=== PATIENT | female | born 1980 | race Caucasian/White ===

== ENCOUNTER → 2016-09-27 | Outpatient (REF) | payer OTHER ==
[~2016-09-27] MED LIST: ACET50TA PO; IBUP-1114 PO; RANI15TA PO; SERT50TA PO
== END ==
LOC: M SFHCLERA 10:53
PROVIDERS: ATTEND Physician Assistant
DX: N89.8 Other specified noninflammatory disorders of vagina (principal)

== ENCOUNTER → 2016-10-22 | Outpatient (REF) | payer OTHER ==
[~2016-10-22] MED LIST changes: +IBUP800T23 PO; +MEDR4PAK PO
== END ==
LOC: M SFHCLERA 14:36
PROVIDERS: ATTEND Nurse Practitioner Family
DX: N89.8 Other specified noninflammatory disorders of vagina (principal)

== ENCOUNTER 2016-10-31 14:45 | Emergency (ER) | payer OTHER ==
[~2016-10-31] VITALS: Ht 170.2 cm; Wt 76.2 kg
[~2016-10-31 14:45] MED LIST changes: -IBUP800T23 PO; -MEDR4PAK PO
[2016-10-31] MEDS ORDERED: KETOROLAC 60 MG/2 ML VIAL (J1885) IM ONE (16:00)
[2016-10-31] MEDS ORDERED: predniSONE 20 MG TAB PO ONE (16:00)
[2016-10-31] MEDS ORDERED: MEDR4PAK PO (16:02)
[2016-10-31] MEDS ORDERED: IBUP800T23 PO (16:02)
[2016-10-31 16:05] VITALS: BP 123/79
== END 2016-10-31 16:27 | disposition home or self-care (01) ==
LOC: M ED 15:31
DX: S39.012A Strain of muscle, fascia and tendon of lower back, initial encounter (principal); M54.32 Sciatica, left side; X58.XXXA Exposure to other specified factors, initial encounter; Y92.099 Unspecified place in other non-institutional residence as the place of occurrence of the external cause; Y93.89 Activity, other specified; Y99.9 Unspecified external cause status; F32.9 Major depressive disorder, single episode, unspecified; F17.200 Nicotine dependence, unspecified, uncomplicated

== ENCOUNTER → 2016-11-03 | Outpatient (CLI) | payer OTHER ==
[~2016-11-03] MED LIST changes: +IBUP800T23 PO; +MEDR4PAK PO
[2016-11-03 16:31] LABS: ALBUMIN 3.7 GM/DL (3.2-5.2); ALBUMIN/GLOBULIN RATIO 1.12 (1.00-1.93); ALKALINE PHOSPHATASE 98 U/L (45-117); ALT/SGPT 24 U/L (12-78); AST/SGOT 19 U/L (15-37); BILIRUBIN,DIRECT < 0.1 MG/DL (0.0-0.2); BILIRUBIN,TOTAL 0.2 MG/DL (0.2-1.0)
== END ==
LOC: M LAB 15:12
PROVIDERS: ATTEND Family Medicine
DX: F11.20 Opioid dependence, uncomplicated (principal)

== ENCOUNTER 2017-02-16 08:34 | Outpatient (RCR) | payer OTHER ==
[~2017-02-16 08:34] MED LIST changes: +IBUP1TAB7 PO; -IBUP800T23 PO
== END 2017-02-19 ==
LOC: M PT 08:34
PROVIDERS: ATTEND Orthopaedic Surgery
DX: Z51.89 Encounter for other specified aftercare (principal); M25.551 Pain in right hip

== ENCOUNTER 2017-04-28 08:52 | Emergency (ER) | payer OTHER ==
[~2017-04-28] VITALS: Ht 170.2 cm; Wt 81.8 kg
[2017-04-28 08:54] VITALS: BP 135/77
[2017-04-28] MEDS ORDERED: DULO1CAP3 (09:09)
[2017-04-28] MEDS ORDERED: BUPR150T3 (09:09)
[2017-04-28] MEDS ORDERED: SUBO8MIS (09:09)
[2017-04-28] MEDS ORDERED: ZANA4TAB PO (09:24)
[2017-04-28] MEDS ORDERED: PRED20TA PO (09:24)
[2017-04-28] MEDS ORDERED: MOBI4TAB PO (09:38)
== END 2017-04-28 09:43 | disposition home or self-care (01) ==
LOC: M ED 08:52
DX: M25.551 Pain in right hip (principal); M25.552 Pain in left hip; M76.891 Other specified enthesopathies of right lower limb, excluding foot; M76.892 Other specified enthesopathies of left lower limb, excluding foot; F41.9 Anxiety disorder, unspecified; F32.9 Major depressive disorder, single episode, unspecified; Z79.899 Other long term (current) drug therapy

== ENCOUNTER 2017-07-24 10:44 | Emergency (ER) | payer OTHER ==
[2017-07-24] MEDS: KETOROLAC 60 MG/2 ML VIAL (J1885) IM (13:38)
== END 2017-07-24 14:08 | disposition home or self-care (01) ==
LOC: M ED 10:44
DX: M54.16 Radiculopathy, lumbar region (principal); M51.37 Other intervertebral disc degeneration, lumbosacral region; F32.9 Major depressive disorder, single episode, unspecified; F41.9 Anxiety disorder, unspecified; F19.10 Other psychoactive substance abuse, uncomplicated; F17.200 Nicotine dependence, unspecified, uncomplicated; Z79.899 Other long term (current) drug therapy
CPT/HCPCS: J1885

== ENCOUNTER → 2017-08-23 | Outpatient (CLI) | payer OTHER | LOC: M RAD 08:25 | DX: N64.4 Mastodynia (principal) | CPT/HCPCS: 77066 ==

== ENCOUNTER → 2018-05-28 | Outpatient (REF) | payer OTHER ==
[~2018-05-28] MED LIST changes: -ACET50TA PO; +BACL1TAB8 GT; +BUPR150T3; +DULO1CAP3; +DULO30CA PO; +GABA-845 PO; +MAPA500T2 PO; +MOBI4TAB PO; +PRED20TA PO; +SUBO12MI SL; +SUBO8MIS; +ZANA4TAB PO
[2018-05-28 20:37] LABS: CHLAMYDIA DNA AMPLIFICATION NEGATIVE (NEGATIVE); GC DNA AMPLIFICATION NEGATIVE (NEGATIVE)
== END ==
LOC: M SFHCLERA 12:40
PROVIDERS: ATTEND Physician Assistant
DX: R39.15 Urgency of urination (principal)

== ENCOUNTER → 2018-06-16 | Outpatient (REF) | payer OTHER ==
[2018-06-16 20:42] LABS: CHLAMYDIA DNA AMPLIFICATION NEGATIVE (NEGATIVE); GC DNA AMPLIFICATION NEGATIVE (NEGATIVE)
== END ==
LOC: M SFHCLERA 11:42
PROVIDERS: ATTEND Nurse Practitioner Family
DX: N30.01 Acute cystitis with hematuria (principal)

== ENCOUNTER → 2018-11-13 | Outpatient (REF) | payer OTHER ==
[~2018-11-13] MED LIST changes: -DULO30CA PO; +DULO30CA9 PO; +SERT-141 PO; -SERT50TA PO
== END ==
LOC: M SFHCLERA 14:28
PROVIDERS: ATTEND Nurse Practitioner Family
DX: J02.9 Acute pharyngitis, unspecified (principal)